=== PATIENT | female | born 1945 | race Caucasian/White ===

== ENCOUNTER → 2016-07-09 | Outpatient (CLI) | payer OTHER, MEDICARE ==
[~2016-07-09] MED LIST: BUDEPRION SR150 MG PO; IRON236 MG; KLOR-CON 10 ER10 MEQ PO; LASIX 20 MG TAB20 MG PO; MOBIC15 MG PO; OMEPRAZOLE 20 M20 M1 PO; SYNTHROID150 MCG PO; TRAMADOL 50 MG50 MG PO
== END ==
LOC: MRI 15:35
DX: M19.072 Primary osteoarthritis, left ankle and foot (principal); M76.821 Posterior tibial tendinitis, right leg

== ENCOUNTER → 2017-01-10 | Outpatient (CLI) | payer OTHER, MEDICARE | LOC: ULTRA 07:37 | DX: R74.0 Nonspecific elevation of levels of transaminase and lactic acid dehydrogenase [LDH] (principal) ==

== ENCOUNTER → 2017-04-10 | Outpatient (CLI) | payer OTHER, MEDICARE | LOC: ULTRA 08:28 | DX: N63.20 Unspecified lump in the left breast, unspecified quadrant (principal) ==

== ENCOUNTER → 2017-04-18 | Outpatient (CLI) | payer OTHER, MEDICARE ==
--- NOTE | ~2017-04-18 | S ---
[facility] [place] [address] SURGICAL PATH RPT PROCEDURE Name: SHILPI OVERTON Room #: REG [facility]#: [id number] Admission: 04/18/17 Date of : 49 Discharge: Report #: [id number] Path Case #: [id number] PATHOLOGY REPORT COLLECTION DATE: 04/18/2017 RECEIVED DATE: 04/18/2017 SUBMITTING PHYS: Dr. Ehsan Sainz OTHER PHYS: Dr. 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 - Size of invasive component: 0.8 cm, at least. 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 (Please see comment) (SKM:lady; 04/19/2017) COMMENT: A message was sent to Rosy Candelaria Nurse Navigator for the [facility] on 04/19/2017 regarding the diagnosis of this case.. This case has also been reviewed by Dr. Will Mckeon M.D., who agrees with the diagnosis. Breast prognostic studies by image analysis have been ordered on the tumor in block A1. The results will be issued separately. (SKM:lady; 04/19/2017) PATHOLOGIST: Loreto Mcknight M.D. REPORT ELECTRONICALLY SIGNED BY: Loreto Mcknight M.D. DATE/TIME: 04/19/2017 15:45 * * * * * * * * * * * * GROSS PATHOLOGY: Received in formalin labeled "Shilpi Overton, left breast 200 5 cm fn," are multiple needle cores of yellow-flores fibrofatty tissue measuring 2.7 x 3.6 x 0.7 cm in aggregate dimensions. The tissue is submitted in its entirety in cassette A1 through A3. The cold ischemic time is 5 minutes. The total formalin fixation time is 11 hours and 55 minutes. (TSD; 04/18/2017) [facility] [place] [address] SURGICAL PATH RPT PROCEDURE Name: SHILPI OVERTON Room #: REG [facility]#: [id number] Admission: 04/18/17 Date of : 49 Discharge: Report #: [id number] Path Case #: [id number] CLINICAL HISTORY: Left breast mass INITIAL CPT CODE(S): A; 97177, 07806(4) Professional services performed by [facility] at [facility] [address] [place] [address] Technical services performed by [facility] at [address] [place] [address], [facility] [address], [place] [address]. PROCEDURE REPORT (Order Date: 04/23/2017 00:00) COMMENT: Quantitative image analysis was performed on block A1. Please see next page for scanned image of results. (AMJ 04/24/2017) PATHOLOGIST: Randy Muniz M.D. REPORT ELECTRONICALLY SIGNED BY: Randy Muniz M.D. DATE/TIME: 04/24/2017 16:[address] [facility] [address] [place] [id number] PHONE: [phone] DIRECTOR: Barrie March M.D. * * * END OF REPORT * * *
== END | disposition home or self-care (01) ==
LOC: ULTRA 01:09
DX: D05.12 Intraductal carcinoma in situ of left breast (principal)

== ENCOUNTER → 2017-04-29 | Outpatient (CLI) | payer OTHER, MEDICARE ==
[2017-04-29 14:11] LABS: CREATININE 0.6 mg/dL (0.6-1.0)
== END ==
LOC: MRI 13:41
PROVIDERS: Specialist
DX: C50.912 Malignant neoplasm of unspecified site of left female breast (principal)